=== PATIENT | male | born 1985 | race African-American/Black ===

== ENCOUNTER 2021-06-06 15:48 | Inpatient (IN) | payer SELFPAY ==
[~2021-06-06] VITALS: Ht 182.9 cm; Wt 81.2 kg
[2021-06-06] MEDS ORDERED: SODIUM CHLORIDE 0.9% 1,000 ML IV ONE (16:30)
[2021-06-06] MEDS ORDERED: LORAZEPAM 2MG/ML CPJ IM ONE (17:00)
[2021-06-06] MEDS ORDERED: HALOPERIDOL LACTATE 5MG/ML VIAL IM ONE (17:00)
[2021-06-06] MEDS ORDERED: CEFTRIAXONE 1 G PREMIX 50 ML IV ONE (17:30)
[2021-06-06] MEDS ORDERED: AZITHROMYCIN 500MG/250ML 250 ML IV ONE (17:30)
[2021-06-06 17:50] LABS: HEMATOCRIT. 43.5 % (42.0-52.0); HEMOGLOBIN. 14.8 g/dL (14.0-18.0); MEAN CORPUSCULAR HEMOGLOBIN 32.9 pg (28.0-32.0); MEAN CORPUSCULAR VOLUME 96.3 fL (80.0-94.0); MEAN PLATELET VOLUME 9.2 fl (7.4-10.4); PLATELET 188 x1000/uL (130-400); RED BLOOD CELL COUNT 4.52 mill/uL (4.7-6.1)
[2021-06-06 17:54] LABS: CHLORIDE 111 mEq/L (98-107)
[2021-06-06 17:59] LABS: ETHANOL BLOOD < 10 mg/dL
[2021-06-06 18:00] LABS: C REACTIVE PROTEIN QUANT 6.4 mg/L (0.0-3.0)
[2021-06-06 18:14] LABS: CLARITY URINE CLOUDY (CLEAR); COLOR URINE YELLOW (YELLOW); KETONES URINE TRACE (NEGATIVE); LEUKOCYTE ESTERASE URINE NEGATIVE (NEGATIVE); NITRITE URINE NEGATIVE (NEGATIVE); OCCULT BLOOD URINE 2+ (NEGATIVE); PROTEIN URINE 1+ (NEGATIVE); SPECIFIC GRAVITY URINE 1.018 (1.005-1.030); UROBILINOGEN URINE 0.2 E.U./dL (0.2-1.0)
[2021-06-06 18:15] LABS: PLATELET ESTIMATE NORMAL
[2021-06-06 18:17] LABS: PHENOBARBITAL 3.1 ug/mL (15.0-40.0)
[2021-06-06 18:18] LABS: CARBAMAZEPINE < 0.5 ug/mL (4-12)
[2021-06-06 18:27] LABS: *AMPHETAMINES SCREEN URINE NEGATIVE (NEGATIVE); *BARBITURATES SCREEN URINE NEGATIVE (NEGATIVE); *BENZODIAZEPINES SCREEN URINE NEGATIVE (NEGATIVE); *COCAINE SCREEN URINE NEGATIVE (NEGATIVE); METHADONE URINE SCREEN NEGATIVE (NEGATIVE); OPIATES URINE SCREEN NEGATIVE (NEGATIVE)
[2021-06-06 18:28] LABS: CANNABINOID URINE SCREEN PRESUMTIVE POSITIVE (NEGATIVE); PHENCYCLIDINE URINE SCREEN NEGATIVE (NEGATIVE)
[2021-06-06] MEDS ORDERED: LORAZEPAM 2MG/ML CPJ IV ONE (18:45)
[2021-06-07 06:38] VITALS: BP 149/101
[2021-06-07 08:00] VITALS: BP 136/75
[2021-06-07] MEDS ORDERED: ONDANSETRON HCL 4MG/2ML INJ IV PRN (08:45)
[2021-06-07] MEDS ORDERED: LORAZEPAM 2MG/ML CPJ IV PRN (08:45)
[2021-06-07] MEDS ORDERED: ACETAMINOPHEN 325MG TABLET PO PRN (08:45)
[2021-06-07] MEDS ORDERED: PNEUMOCOCCAL 23-VAL P-SAC VAC 0.5 ML IM ONE (09:00)
[2021-06-07] MEDS: LEVETIRACETAM 500MG PREMIX 100 ML IV SCH ×2 (11:34→20:49)
[2021-06-07 12:00] VITALS: BP 138/99
[2021-06-07 16:00] VITALS: BP 139/89
[2021-06-07] MEDS ORDERED: INFLUENZA VACCINE 05/PF 0.5 ML SYRINGE IM ONE (17:00)
[2021-06-07 20:00] VITALS: BP 149/99
[2021-06-07] MEDS: PIPERACILLIN/TAZOBACTAM 3.375 G in DEXTROSE 5% WATER 50 ML IV SCH (21:50)
[2021-06-08 04:00] VITALS: BP 128/79
[2021-06-08] MEDS: PIPERACILLIN/TAZOBACTAM 3.375 G in DEXTROSE 5% WATER 50 ML IV SCH ×2 (05:06→14:07)
[2021-06-08] MEDS: IPRATROPIUM/ALBUTEROL 0.5-3(2.5)MG/3ML NEB HHN SCH ×3 (05:13→12:54)
[2021-06-08 06:52] LABS: CHLORIDE 107 mEq/L (98-107)
[2021-06-08 08:00] VITALS: BP 131/85
[2021-06-08 08:25] LABS: BASOPHILS % 0.4 % (0.0-2.0); EOSINOPHILS % 0.9 % (0.0-5.0); HEMATOCRIT. 38.9 % (42.0-52.0); HEMOGLOBIN. 13.4 g/dL (14.0-18.0); LYMPHOCYTES % 10.4 % (20.0-50.0); MEAN CORPUSCULAR HEMOGLOBIN 33.4 pg (28.0-32.0); MEAN CORPUSCULAR VOLUME 96.8 fL (80.0-94.0); MEAN PLATELET VOLUME 8.5 fl (7.4-10.4); MONOCYTES % 6.4 % (2.0-8.0); NEUTROPHILS % 81.9 % (40.0-76.0); PLATELET 122 x1000/uL (130-400); RED BLOOD CELL COUNT 4.02 mill/uL (4.7-6.1)
[2021-06-08] MEDS: LEVETIRACETAM 500MG PREMIX 100 ML IV SCH (09:05)
[2021-06-08 12:00] VITALS: BP 144/88
[2021-06-08] MEDS ORDERED: KEPP500 MT (15:25)
[2021-06-08] MEDS ORDERED: LEVO500T89 MT (15:25)
[2021-06-08 15:56] VITALS: BP 144/88
== END 2021-06-08 17:52 | disposition home or self-care (01) | DRG 720 ==
LOC: ER 15:48 → 7EST 18:53 → ENRESERV 06-07 05:55
PROVIDERS: ADMIT Internal Medicine; ATTEND Internal Medicine
DX: A41.9 Sepsis, unspecified organism (principal); J96.00 Acute respiratory failure, unspecified whether with hypoxia or hypercapnia; J18.9 Pneumonia, unspecified organism; E87.8 Other disorders of electrolyte and fluid balance, not elsewhere classified; R56.9 Unspecified convulsions; F17.210 Nicotine dependence, cigarettes, uncomplicated; R74.01 Elevation of levels of liver transaminase levels; Z20.822 Contact with and (suspected) exposure to COVID-19; F12.20 Cannabis dependence, uncomplicated; Z78.1 Physical restraint status
CPT/HCPCS: 36415; 71045; 71250; 80048; 80053; 80156; 80165; 80184; 80185; 80305; 80307; 80320; 80329; 81003; 82728; 83605; 84145; 85025; 85384; 86140; 90686; 90732; 93005; 99291; C9803; J0456; J0696; J1630; J1953; J2060; J2543; J7030; J7060; U0003; U0005; G0480